=== PATIENT | female | born 1965 | race Caucasian/White ===

== ENCOUNTER 2016-11-06 09:50 | Emergency (ER) | payer MEDICARE, MEDICAID ==
--- NOTE | 2016-11-13 21:25 | ER ---
ADMIT: 11/06/2016 RM/LOC: ER [facility] MR#: [id number] [address] [address] [facility] [address] [place] [address] Emergency Room Report SEX: F AGE: 51 : 1965 DATE: 11/06/2016 ADDENDUM: This patient comes to the ER because she has back pain. Three months ago, she was diagnosed in [place] with having sciatica and it seems to be bothering her on and off. She was given medication for this. She does not know the name of it, but she ran out. She thinks it is exacerbated by her recent travel from [place] to here. On physical exam, she does have pain in the left lower back that goes into the left buttocks and down the left leg consistent with sciatica. She was given Toradol 60 mg IM in the ER, and I wrote a prescription for tramadol and also for physical therapy. Please see my T-sheet. PIPO Templeton / Hilario Mayen MD / dawnal JOB #: [id number] CC: Hilario Mayen MD, Attending Physician Consuelo Richard MD, Family Physician
== END 2016-11-06 11:12 | disposition home or self-care (01) ==
LOC: ER 09:50
DX: M54.32 Sciatica, left side (principal); I10 Essential (primary) hypertension; J45.909 Unspecified asthma, uncomplicated; Z79.899 Other long term (current) drug therapy

== ENCOUNTER 2016-11-20 09:51 | Emergency (ER) | payer MEDICARE, MEDICAID ==
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
== END 2016-11-20 10:45 | disposition home or self-care (01) ==
LOC: ER 09:51
DX: M25.512 Pain in left shoulder (principal); E11.9 Type 2 diabetes mellitus without complications; I10 Essential (primary) hypertension; G43.909 Migraine, unspecified, not intractable, without status migrainosus; Z79.899 Other long term (current) drug therapy